=== PATIENT | female | born 1965 | race Caucasian/White ===

== ENCOUNTER → 2017-09-30 | Outpatient (CLI) | payer OTHER ==
[~2017-09-30] MED LIST: DIPH1LIQ PO; GADAVIST IV PRN; IBUP-1050 PO; PARO10TA PO; PRT/20 PO
--- NOTE | 2017-09-30 14:23 | DIAGNOSTIC IMAGING REPORT ---
MRI OF THE BRAIN COMBO INTERNAL AUDITORY CANAL PROTOCOL CLINICAL HISTORY: Vertigo. Tinnitus. COMPARISON STUDY: CT of the brain dated 09/09/2007. TECHNIQUE: MRI of the brain was performed utilizing various T1 and T2-weighted sequences in the axial, sagittal, and coronal planes. Contrast-enhanced sequences were acquired following the administration of 9.5 cc of Gadavist. Additional high-resolution imaging was performed through the skull base both pre and post contrast to assess the internal auditory canals. FINDINGS: Brain parenchyma: There is minimal subcortical and periventricular microangiopathic disease. There is no hemorrhage or mass effect. There is no restricted diffusion to suggest acute ischemia. No enhancing mass lesion is identified on the postcontrast images. [place]-white matter differentiation is preserved. No extra-axial fluid collection is seen. The cerebellar tonsils are normal in configuration. Ventricles, sulci, and cisterns: Normal in configuration. Internal canals: No enhancing mass lesion is identified in the cerebellopontine angle bilaterally. No mass or abnormal enhancement is identified along the course of the internal auditory canals. The middle ear structures are normal as imaged. Pituitary and sella: Unremarkable. Intracranial vasculature: Normal flow voids are maintained at the skull base. Orbits: The bony orbits are grossly intact. Orbital contents are normal in appearance. Sinuses and mastoids: Clear. Calvarium: Unremarkable. Cervical cord: Partially visualized cervical spinal cord is normal in morphology and signal intensity. IMPRESSION: 1. No acute intracranial abnormality. 2. Unremarkable MRI assessment of the internal auditory canals. Electronically signed by: Marty Ramey M.D. 09/30/2017 2:21 PM Dictated Date/Time: 09/30/2017 1:57 PM
== END | disposition home or self-care (01) ==
LOC: C.MRI 12:25
PROVIDERS: ATTEND Physician Assistant
DX: H93.8X2 Other specified disorders of left ear (principal); H93.12 Tinnitus, left ear